=== PATIENT | male | born 1995 | race Caucasian/White ===

== ENCOUNTER 2017-02-13 21:49 | Emergency (ER) | payer OTHER ==
[~2017-02-13] VITALS: Ht 175.3 cm; Wt 68.0 kg
[~2017-02-13 21:49] MED LIST: CYCLOBENZAPRINE10 MG PO; ROBAXIN-750750 MG PO
== END 2017-02-13 23:55 | disposition home or self-care (01) ==
LOC: ED 21:49
DX: N34.2 Other urethritis (principal); Z88.7 Allergy status to serum and vaccine
CPT/HCPCS: 87491; 87591; 96372; 99283; J0696

== ENCOUNTER → 2017-11-01 | Emergency (ER) | payer MEDICAID ==
[~2017-11-01] VITALS: Ht 175.3 cm; Wt 68.0 kg
[~2017-11-01] MED LIST changes: +AMOXICILLIN500 MG PO
== END ==
LOC: ED 23:37
DX: M54.2 Cervicalgia (principal); T46.7X5A Adverse effect of peripheral vasodilators, initial encounter; F17.200 Nicotine dependence, unspecified, uncomplicated; Z88.7 Allergy status to serum and vaccine
CPT/HCPCS: 99282; Q0163

== ENCOUNTER 2017-11-14 00:40 | Emergency (ER) | payer MEDICAID ==
[~2017-11-14] VITALS: Ht 175.3 cm; Wt 68.0 kg
[~2017-11-14 00:40] MED LIST changes: -AMOXICILLIN500 MG PO
[2017-11-14] MEDS ORDERED: AMOXICILLIN500 MG PO (01:08)
== END 2017-11-14 01:23 | disposition home or self-care (01) ==
LOC: ED 00:40
DX: J02.9 Acute pharyngitis, unspecified (principal); F17.200 Nicotine dependence, unspecified, uncomplicated; Z88.7 Allergy status to serum and vaccine
CPT/HCPCS: 87081; 87880; 99283

== ENCOUNTER 2018-04-11 14:00 | Emergency (ER) | payer SELFPAY ==
[~2018-04-11] VITALS: Ht 175.3 cm; Wt 68.0 kg
[~2018-04-11 14:00] MED LIST changes: +AMOXICILLIN500 MG PO
== END 2018-04-11 14:21 | disposition home or self-care (01) ==
LOC: ED 14:00
DX: M25.521 Pain in right elbow (principal); V23.4XXA Motorcycle driver injured in collision with car, pick-up truck or van in traffic accident, initial encounter

== ENCOUNTER 2018-07-06 15:04 | Emergency (ER) | payer OTHER ==
[~2018-07-06] VITALS: Ht 175.3 cm; Wt 68.0 kg
== END 2018-07-06 15:58 | disposition home health service (06) ==
LOC: ED 15:04
DX: R20.0 Anesthesia of skin (principal)

== ENCOUNTER 2019-05-17 23:48 | Emergency (ER) | payer OTHER ==
[~2019-05-17] VITALS: Ht 175.3 cm; Wt 70.3 kg
[2019-05-18] MEDS ORDERED: TRAMADOL HCL50 MG PO (00:34)
== END 2019-05-18 00:45 | disposition home or self-care (01) ==
LOC: ED 23:48
DX: M25.521 Pain in right elbow (principal); V29.9XXA Motorcycle rider (driver) (passenger) injured in unspecified traffic accident, initial encounter
CPT/HCPCS: 73080; 99283-25

== ENCOUNTER 2019-06-20 08:14 | Emergency (ER) | payer OTHER ==
[~2019-06-20] VITALS: Ht 175.3 cm; Wt 70.3 kg
[~2019-06-20 08:14] MED LIST changes: +TRAMADOL HCL50 MG PO
[2019-06-20] MEDS ORDERED: NAPROXEN500 MG PO (09:20)
== END 2019-06-20 09:27 | disposition home or self-care (01) ==
LOC: ED 08:14
DX: S96.911A Strain of unspecified muscle and tendon at ankle and foot level, right foot, initial encounter (principal); X58.XXXA Exposure to other specified factors, initial encounter; Z88.7 Allergy status to serum and vaccine
CPT/HCPCS: 73630; 99283-25